=== PATIENT | female | born 1930 | race Caucasian/White ===

== ENCOUNTER 2018-03-28 20:55 | Emergency (ER) | payer OTHER ==
[~2018-03-28] VITALS: Ht 152.4 cm; Wt 68.0 kg
[~2018-03-28 20:55] MED LIST: ACET-1175 PO; ACT5 PO; ASPEC81 PO; RANI300T2 PO
[2018-03-28 21:02] VITALS: TEMP 36.6; Ht 152.4 cm; Wt 68.0 kg
[2018-03-28] MEDS ORDERED: DIPHTHERIA/TETANUS/PERTUSSIS 0.5 ML SYR/VIAL IM. ONE (21:30)
--- NOTE | 2018-03-28 21:50 | EMERGENCY ROOM VISIT NOTE ---
History Report prepared by Danny: Bettye Estrada Under the Supervision of: Dr. Salazar Peguero M.D. First contact with patient: 21:09 Chief Complaint: FALL Stated Complaint: FALL History of Present Illness The patient is an 87 year old female who presents to the Emergency Room with complaints of an episode of a fall occurring prior to arrival. The patient states that she likes to go for evening walks in the back [place] her home. She states that the road is not paved. She states that she is unsure how she fell, but notes that she remembers it all. The patient complains of head pain, right hand pain, and left knee pain. She notes that placing weight on her left leg makes the pain worse. The patient denies loss of consciousness, neck pain, back pain, changes in vision, and the use of blood thinners. Source of History: patient Onset: prior to arrival Position: head, hand (right), knee (left) Quality: other (fall) Timing: other (episode) Modifying Factors (Worsening): other (bearing weight) Associated Symptoms: No LOC, No neck pain, No back pain Note: The patient complains of head pain, right hand pain, and left knee pain. The patient denies change in vision and the use of blood thinners. Review of Systems See HPI for pertinent positives and negatives. A total of ten systems were reviewed and were otherwise negative. Past Medical & Surgical Medical Problems: (1) Dyslipidemia (2) Gastroesophageal reflux disease (3) Generalized osteoarthritis (4) Osteoporosis (5) Paroxysmal atrial fibrillation (6) s/p colonoscopy 2004 (7) s/p EGD 2006 Family History Cancer FH: HTN (hypertension) Heart disease Social History Smoking Status: Never Smoker Marital Status: Housing Status: lives with family Current/Historical Medications Scheduled Ranitidine (Zantac), 300 MG PO HS Allergies Coded Allergies: Lidocaine (Verified Allergy, Mild, 03/28/18) Naproxen (Verified Allergy, Mild, 03/28/18) Esomeprazole (Verified Allergy, Unknown, 03/28/18) Latex1 -Allergic Contact Dermititis (Verified Allergy, Unknown, 03/28/18) Physical Exam Vital Signs Date Time Temp Pulse Resp B/P (MAP) Pulse Ox O2 Delivery O2 Flow Rate FiO2 03/29/18 00:03 64 16 166/78 93 Room Air 03/28/18 23:48 69 16 184/88 94 Room Air 03/28/18 23:30 207/88 03/28/18 23:15 70 18 216/86 98 Room Air 03/28/18 21:02 36.6 85 18 190/79 100 Room Air Physical Exam Physical Exam GENERAL: She is oriented to person, place, and time. She appears well- developed and well-nourished. She does not appear distressed. HENT: Exam performed. Head: Normocephalic. Ecchymosis over her face. Right Ear: External ear normal. No mastoid tenderness. Left Ear: External ear normal. No mastoid tenderness. Mouth/Throat: The oropharynx is clear and moist. No trismus in the jaw. No dental abscesses or uvula swelling. No oropharyngeal exudate or tonsillar abscesses. Nose: swelling and ecchymosis. no septal hematoma bilateally. EYES: Conjunctivae and EOM are normal. Pupils are equal, round, and reactive to light. Right eye exhibits no discharge. Left eye exhibits no discharge. No scleral icterus. NECK: Normal range of motion. Neck supple. No JVD present. No spinous process tenderness present. No carotid bruit present. No rigidity. No tracheal deviation and normal range of motion present. No Brudzinski's sign and no Kernig 's sign noted. CV: Normal rate, regular rhythm, normal heart sounds and intact distal pulses. There is no peripheral edema. Palpable radial pulses bue. PULM/CHEST: Effort normal and breath sounds normal. No respiratory distress. No stridor. She has no wheezes. She has no rales. Chest Wall: She exhibits no tenderness. ABD: The abdomen is soft. Bowel sounds are normal. She has no distension. No mass is present. There is no tenderness. There is no rebound, no guarding, no Santos's sign and no tenderness at McBurney's point. Rovsig negative MUSC/SKEL: Normal range of motion. There is no peripheral edema, tenderness or deformity. Pelvis stable. Pain on palpation of the right snuffbox. LYMPH: No cervical adenopathy. NEURO: She is alert and oriented to person, place, and time. She has normal strength. No cranial nerve deficit or sensory deficit. Coordination and gait normal. GCS eye subscore is 4. GCS verbal subscore is 5. GCS motor subscore is 6. Cerebellar tests wnl. SKIN: Abrasions over her left lower extremity and right wrist. PSYCH: She has a normal mood and affect. Behavior is normal. Judgment and thought content normal. Medical Decision & Procedures ER Provider Diagnostic Interpretation: Radiology results as stated below per my review and radiologist interpretation: PELVIS X-RAY: The results were interpreted by me. No acute fracture or dislocation. CHEST X-RAY: The results were interpreted by me. No pneumothorax. No free air under the diaphragm. No cardiomegaly. No infiltrate. No bony fracture. Atelectasis of the left lower lobe. R WRIST X-RAY: The results were interpreted by me. Possible distal radial fracture. L KNEE X-RAY: The results were interpreted by me. No acute fracture or dislocation. HEAD WITHOUT CONTRAST (CT) CLINICAL HISTORY: 87 years-old Female with fall. Acute head injury status post fall TECHNIQUE: Multiple axial CT images of the head were obtained without contrast. A dose lowering technique was utilized adhering to the principles of ALARA. COMPARISON: CT head 05/06/2011. FINDINGS: No shift, intracranial mass, hydrocephalus, territorial ischemia or abnormal extra-axial collection. There is a 6 x 5 mm hyperdensity within the periventricular white matter of the left parietal lobe, image 11 series 2. No acute intraventricular hemorrhage. Age-related involutional changes. Moderate patchy low-attenuation about the white matter suggests chronic microvascular changes. The calvarium is intact. The paranasal sinuses, mastoid air cells, and middle ear cavities are clear. IMPRESSION: 1. 6 mm intraparenchymal hematoma of the periventricular left parietal lobe. 2. No midline shift or abnormal extra-axial collections. 3. No calvarial fracture. Findings were discussed with Dr. Peguero on 03/28/2018 at 10:05 PM The above report was generated using voice recognition software. It may contain grammatical, syntax or spelling errors. Electronically signed by: Jean Koenig M.D. 03/28/2018 10:06 PM Dictated Date/Time: 03/28/2018 9:58 PM FACIAL BONES-MXILLOFAC WITHOUT CLINICAL HISTORY: 87 years-old Female presenting with fall. Acute facial trauma status post fall COMPARISON STUDY: CT head and cervical spine of same day TECHNIQUE: High-resolution CT scan of the facial bones is performed. Images are reviewed in the axial, sagittal, and coronal planes. IV contrast was not administered for this examination. A dose lowering technique was utilized adhering to the principles of ALARA. FINDINGS: Moderate paranasal and mild left cheek soft tissue swelling. Acute fractures of the bilateral nasal bones with minimal angulation on the right. No significant displacement. Mild rightward bowing and spurring of the nasal septum. There is a suggested acute nondisplaced fracture about the left zygomatic arch, seen best on the sagittal images. Right zygomatic arch appears intact. Bilateral maxillary mooney, pterygoid plates and orbital mooney appear intact. Nasal septum and vomer also appear intact. Mastoid air cells and middle ear cavities are clear. No acute mandibular fracture. Mild mucosal thickening of the ethmoid air cells and nasal turbinates. Minimal mucosal thickening of the left sphenoid sinus. The remaining paranasal sinuses are generally clear. Degenerative changes about the cervical spine without acute fracture identified. Bilateral orbits appear unremarkable. Subcentimeter intraparenchymal hematoma about the periventricular left parietal lobe. IMPRESSION: 1. Acute bilateral nondisplaced nasal bone fractures with minimal angulation on the right. 2. Acute nondisplaced fracture of the left zygomatic arch. 3. Ill-defined subcentimeter intraparenchymal hematoma within the left parietal lobe periventricular distribution is better seen on comparison CT of the head. The above report was generated using voice recognition software. It may contain grammatical, syntax or spelling errors. Electronically signed by: Jean Koenig M.D. 03/28/2018 10:27 PM Dictated Date/Time: 03/28/2018 10:20 PM CERVICAL SPINE W/O CT DOSE: 943.32 mGy.cm CLINICAL HISTORY: 87 years-old Female with fall. Acute neck trauma status post fall COMPARISON: CT head and maxillofacial same day, CT cervical spine 05/06/2011 TECHNIQUE: Multiple axial CT images of the cervical spine were obtained without contrast. A dose lowering technique was utilized adhering to the principles of ALARA. FINDINGS: Demineralized appearance of the bones. 3 mm anterolisthesis C4 on C5 has progressed from comparison and appears degenerative with bony fusion of the left facets at this level. Nuchal ligament calcification measuring 1.9 cm posterior to the mid cervical spine. At least moderate multilevel facet arthropathy. No acute fracture or subluxation identified. Mastoid air cells and middle ear cavities are clear. Evaluation of the central canal and neuroforamina is better assessed by MRI. Moderate intervertebral disc space narrowing at C4-C5 with moderate to severe C5-C6 and C6-C7 disc space narrowing. Multilevel uncovertebral spurring with posterior disc osteophyte complex relation. No prevertebral soft tissue swelling. No definite high-grade central canal stenosis. Biapical pleural-parenchymal scarring. Spiculated and irregular solid nodule of the left upper lobe measures 7 x 5 x 7 mm favoring area of scarring, previously measuring 6 x 5 mm on study dated 05/06/2011. 4 mm solid nodule of the right lung apex, image 501 series 6 is unchanged. 3 mm solid nodule of the left lung apex as seen on image 497 series 6. This also appears unchanged. Soft tissues are unremarkable. IMPRESSION: 1. No acute cervical spine fracture or subluxation. 2. Degenerative changes as above. 3. Biapical pleural-parenchymal scarring with irregular pulmonary nodule of the left lung apex measuring up to 7 mm favoring an area of pleural-parenchymal scarring, slightly increased in size from comparison study 05/06/2011. The above report was generated using voice recognition software. It may contain grammatical, syntax or spelling errors. Electronically signed by: Jean Koenig M.D. 03/28/2018 10:19 PM Dictated Date/Time: 03/28/2018 10:11 PM Laboratory Results 03/28/18 22:20 Red Blood Count 4.04, Mean Corpuscular Volume 92.6, Mean Corpuscular Hemoglobin 30.4, Mean Corpuscular Hemoglobin Concent 32.9, Mean Platelet Volume 10.1, Neutrophils (%) (Auto) 84.1, Lymphocytes (%) (Auto) 6.9, Monocytes (%) (Auto) 8.0, Eosinophils (%) (Auto) 0.6, Basophils (%) (Auto) 0.2, Neutrophils # (Auto) 8.78, Lymphocytes # (Auto) 0.72, Monocytes # (Auto) 0.83, Eosinophils # (Auto) 0.06, Basophils # (Auto) 0.02 03/28/18 22:20 Test 03/28/18 22:20 White Blood Count 10.43 K/uL (4.8-10.8) Red Blood Count 4.04 M/uL (4.2-5.4) Hemoglobin 12.3 g/dL (12.0-16.0) Hematocrit 37.4 % (37-47) Mean Corpuscular Volume 92.6 fL (80-100) Mean Corpuscular Hemoglobin 30.4 pg (25-34) Mean Corpuscular Hemoglobin Concent 32.9 g/dl (32-36) Platelet Count 305 K/uL (130-400) Mean Platelet Volume 10.1 fL (7.4-10.4) Neutrophils (%) (Auto) 84.1 % Lymphocytes (%) (Auto) 6.9 % Monocytes (%) (Auto) 8.0 % Eosinophils (%) (Auto) 0.6 % Basophils (%) (Auto) 0.2 % Neutrophils # (Auto) 8.78 K/uL (1.4-6.5) Lymphocytes # (Auto) 0.72 K/uL (1.2-3.4) Monocytes # (Auto) 0.83 K/uL (0.11-0.59) Eosinophils # (Auto) 0.06 K/uL (0-0.5) Basophils # (Auto) 0.02 K/uL (0-0.2) RDW Standard Deviation 45.9 fL (36.4-46.3) RDW Coefficient of Variation 13.6 % (11.5-14.5) Immature Granulocyte % (Auto) 0.2 % Immature Granulocyte # (Auto) 0.02 K/uL (0.00-0.02) Prothrombin Time 10.3 SECONDS (9.0-12.0) Prothromb Time International Ratio 1.0 (0.9-1.1) Activated Partial Thromboplast Time 26.9 SECONDS (21.0-31.0) Partial Thromboplastin Ratio 1.0 Anion Gap 11.0 mmol/L (3-11) Est Creatinine Clear Calc Drug Dose 34.9 ml/min Estimated GFR () 61.2 Estimated GFR (Non- 52.8 BUN/Creatinine Ratio 16.3 (10-20) Calcium Level 8.7 mg/dl (8.5-10.1) Laboratory results reviewed by me Medications Administered Medications (Trade) Dose Ordered Sig/Niles Route Start Time Stop Time Status Last Admin Dose Admin Diphtheria/ Pertussis/Tetanus Vacc (Adacel Inj) 0.5 ml ONCE ONCE IM. 03/28/18 21:30 03/28/18 21:31 DC 03/28/18 21:30 0.5 ML Hydromorphone HCl (Dilaudid Inj) 0.5 mg NOW STAT IV 03/28/18 23:33 03/28/18 23:34 DC 03/28/18 23:42 0.5 MG Ondansetron HCl (Zofran Inj) 4 mg NOW STAT IV 03/28/18 23:33 03/28/18 23:34 DC 03/28/18 23:43 4 MG Procedure Bedside FAST exam performed with ultrasound. Views were obtained in the hepatorenal subxyphoid splenorenal and suprapubic windows. No free fluid in the abdomen. No pericardial tamponade. ED Course 2119: The patient was evaluated in room C3. A complete history and physical exam was performed. 2129: Ordered Adacel Inj 0.5 ml IM. 2213: Received a call from radiology Dr. Arnold who states that there is a 6 mm intraparenchymal hematoma in the left parietal lobe. I discussed the patient 's case with Dr. Tasha Whitaker Neurosurgeon. He states that there is no acute intervention necessary and to speak with trauma service about possible transfer. 2218: I discussed the patient's case with Dr. Ailin Whitaker emergency department. Labs ordered. Bedside FAST exam negative. The patient will be transferred and evaluated for further treatment and disposition. 2231: Labs within normal limits. X-ray shows possible distal radius fracture. We will place the patient in a Velcro splint. I reevaluated the patient and updated her and her family on her test results at this time. They verbally understood and agreed with the treatment plan. 2333: EMS here to transport the patient to [place]. Patient is hypertensive and in pain. Ordered Zofran Inj 4 mg IV, Dilaudid Inj 0.5 mg IV. Medical Decision 0: The patient was evaluated in room C3. A complete history and physical exam was performed. 0: Ordered Adacel Inj 0.5 ml IM. 4: Received a call from radiology Dr. Arnold who states that there is a 6 mm intraparenchymal hematoma in the left parietal lobe. I discussed the patient 's case with Dr. Tasha Whitaker Neurosurgeon. He states that there is no acute intervention necessary and to speak with trauma service about possible transfer. 2218: I discussed the patient's case with Dr. Ailin Whitaker emergency department. Labs ordered. Bedside FAST exam negative. The patient will be transferred and evaluated for further treatment and disposition. 2231: Labs within normal limits. X-ray shows possible distal radius fracture. We will place the patient in a Velcro splint. I reevaluated the patient and updated her and her family on her test results at this time. They verbally understood and agreed with the treatment plan. 2333: EMS here to transport the patient to [place]. Patient is hypertensive and in pain. Ordered Zofran Inj 4 mg IV, Dilaudid Inj 0.5 mg IV. Medication Reconcilliation Current Medication List: was personally reviewed by me Blood Pressure Screening Patient's blood pressure: Elevated blood pressure Will be further monitored by the Brendan Whitaker. Consults Time Called: 2202 Consulting Physician: Dr. Tasha Whitaker Neurosurgeon Returned Call: 2213 I discussed the patient's case with Dr. Tasha Whitaker Neurosurgeon. He states that there is no acute intervention necessary. Additional Consults: Time Called: 2213 Consulted Physician: Dr. Ailin Whitaker Trauma Returned Call: 2217 Additional Comments: I discussed the patient's case with Dr. Ailin Whitaker Trauma. The patient will be transferred and evaluated for further treatment and disposition. Impression Primary Impression: Intracerebral hemorrhage Additional Impressions: Nasal fracture Zygomatic arch fracture Fall Critical Care I have personally spent greater than 81 minutes of critical care time in the direct management of this patient. This includes bedside care, interpretation of diagnostic studies, and testing, discussion with consultants, patient, and family members, and other required patient management activities. This 81 minutes is in excess of all separately billable procedures. Scribe Attestation The scribe's documentation has been prepared under my direction and personally reviewed by me in its entirety. I confirm that the note above accurately reflects all work, treatment, procedures, and medical decision making performed by me. The chart was completed utilizing [employer] Speech voice recognition software. Grammatical errors, random word insertions, pronoun errors, and incomplete sentences are an occasional consequence of this system due to software limitations, ambient noise, and hardware issues. Any formal questions or concerns about the content, text, or information contained within the body of this dictation should be directly addressed to the physician for clarification. Departure Information Dispostion Transfer Acute Care Facility Referrals Sergei Matias M.D. (PCP) Patient Instructions My [facility] Problem Qualifiers Primary Impression: Intracerebral hemorrhage Intracerebral hemorrhage etiology: traumatic Encounter type: initial encounter Laterality: unspecified laterality Loss of consciousness presence/ duration: without LOC Qualified Codes: S06.360A - Traumatic hemorrhage of cerebrum, unspecified, without loss of consciousness, initial encounter Additional Impressions: Nasal fracture Encounter type: initial encounter Fracture type: closed Qualified Codes: S02.2XXA - Fracture of nasal bones, initial encounter for closed fracture Zygomatic arch fracture Encounter type: initial encounter Fracture type: closed Laterality: unspecified laterality Qualified Codes: S02.402A - Zygomatic fracture, unspecified side, initial encounter for closed fracture Fall Encounter type: initial encounter Qualified Codes: W19.XXXA - Unspecified fall, initial encounter
--- NOTE | 2018-03-28 22:08 | DIAGNOSTIC IMAGING REPORT ---
HEAD WITHOUT CONTRAST (CT) CLINICAL HISTORY: 87 years-old Female with fall. Acute head injury status post fall TECHNIQUE: Multiple axial CT images of the head were obtained without contrast. A dose lowering technique was utilized adhering to the principles of ALARA. COMPARISON: CT head 05/06/2011. FINDINGS: No shift, intracranial mass, hydrocephalus, territorial ischemia or abnormal extra-axial collection. There is a 6 x 5 mm hyperdensity within the periventricular white matter of the left parietal lobe, image 11 series 2. No acute intraventricular hemorrhage. Age-related involutional changes. Moderate patchy low-attenuation about the white matter suggests chronic microvascular changes. The calvarium is intact. The paranasal sinuses, mastoid air cells, and middle ear cavities are clear. IMPRESSION: 1. 6 mm intraparenchymal hematoma of the periventricular left parietal lobe. 2. No midline shift or abnormal extra-axial collections. 3. No calvarial fracture. Findings were discussed with Dr. Peguero on 03/28/2018 at 10:05 PM The above report was generated using voice recognition software. It may contain grammatical, syntax or spelling errors. Electronically signed by: Jean Koenig M.D. 03/28/2018 10:06 PM Dictated Date/Time: 03/28/2018 9:58 PM
--- NOTE | 2018-03-28 22:20 | DIAGNOSTIC IMAGING REPORT ---
CERVICAL SPINE W/O CT DOSE: 943.32 mGy.cm CLINICAL HISTORY: 87 years-old Female with fall. Acute neck trauma status post fall COMPARISON: CT head and maxillofacial same day, CT cervical spine 05/06/2011 TECHNIQUE: Multiple axial CT images of the cervical spine were obtained without contrast. A dose lowering technique was utilized adhering to the principles of ALARA. FINDINGS: Demineralized appearance of the bones. 3 mm anterolisthesis C4 on C5 has progressed from comparison and appears degenerative with bony fusion of the left facets at this level. Nuchal ligament calcification measuring 1.9 cm posterior to the mid cervical spine. At least moderate multilevel facet arthropathy. No acute fracture or subluxation identified. Mastoid air cells and middle ear cavities are clear. Evaluation of the central canal and neuroforamina is better assessed by MRI. Moderate intervertebral disc space narrowing at C4-C5 with moderate to severe C5-C6 and C6-C7 disc space narrowing. Multilevel uncovertebral spurring with posterior disc osteophyte complex relation. No prevertebral soft tissue swelling. No definite high-grade central canal stenosis. Biapical pleural-parenchymal scarring. Spiculated and irregular solid nodule of the left upper lobe measures 7 x 5 x 7 mm favoring area of scarring, previously measuring 6 x 5 mm on study dated 05/06/2011. 4 mm solid nodule of the right lung apex, image 501 series 6 is unchanged. 3 mm solid nodule of the left lung apex as seen on image 497 series 6. This also appears unchanged. Soft tissues are unremarkable. IMPRESSION: 1. No acute cervical spine fracture or subluxation. 2. Degenerative changes as above. 3. Biapical pleural-parenchymal scarring with irregular pulmonary nodule of the left lung apex measuring up to 7 mm favoring an area of pleural-parenchymal scarring, slightly increased in size from comparison study 05/06/2011. The above report was generated using voice recognition software. It may contain grammatical, syntax or spelling errors. Electronically signed by: Jean Koenig M.D. 03/28/2018 10:19 PM Dictated Date/Time: 03/28/2018 10:11 PM
--- NOTE | 2018-03-28 22:28 | DIAGNOSTIC IMAGING REPORT ---
FACIAL BONES-MXILLOFAC WITHOUT CLINICAL HISTORY: 87 years-old Female presenting with fall. Acute facial trauma status post fall COMPARISON STUDY: CT head and cervical spine of same day TECHNIQUE: High-resolution CT scan of the facial bones is performed. Images are reviewed in the axial, sagittal, and coronal planes. IV contrast was not administered for this examination. A dose lowering technique was utilized adhering to the principles of ALARA. FINDINGS: Moderate paranasal and mild left cheek soft tissue swelling. Acute fractures of the bilateral nasal bones with minimal angulation on the right. No significant displacement. Mild rightward bowing and spurring of the nasal septum. There is a suggested acute nondisplaced fracture about the left zygomatic arch, seen best on the sagittal images. Right zygomatic arch appears intact. Bilateral maxillary mooney, pterygoid plates and orbital mooney appear intact. Nasal septum and vomer also appear intact. Mastoid air cells and middle ear cavities are clear. No acute mandibular fracture. Mild mucosal thickening of the ethmoid air cells and nasal turbinates. Minimal mucosal thickening of the left sphenoid sinus. The remaining paranasal sinuses are generally clear. Degenerative changes about the cervical spine without acute fracture identified. Bilateral orbits appear unremarkable. Subcentimeter intraparenchymal hematoma about the periventricular left parietal lobe. IMPRESSION: 1. Acute bilateral nondisplaced nasal bone fractures with minimal angulation on the right. 2. Acute nondisplaced fracture of the left zygomatic arch. 3. Ill-defined subcentimeter intraparenchymal hematoma within the left parietal lobe periventricular distribution is better seen on comparison CT of the head. The above report was generated using voice recognition software. It may contain grammatical, syntax or spelling errors. Electronically signed by: Jean Koenig M.D. 03/28/2018 10:27 PM Dictated Date/Time: 03/28/2018 10:20 PM
[2018-03-28 22:36] LABS: BASO % 0.2 %; BASO ABS # 0.02 K/uL (0-0.2); EOS % 0.6 %; EOS ABS # 0.06 K/uL (0-0.5); HEMATOCRIT 37.4 % (37-47); HEMOGLOBIN 12.3 g/dL (12.0-16.0); IG# 0.02 K/uL (0.00-0.02); LYMPH % 6.9 %; LYMPH ABS # 0.72 K/uL (1.2-3.4); MEAN CELL VOLUME 92.6 fL (80-100); MEAN CORPUSCULAR HEMOGLOBIN 30.4 pg (25-34); MEAN CORPUSCULAR HGB CONC 32.9 g/dl (32-36); MEAN PLATELET VOLUME 10.1 fL (7.4-10.4); MONO ABS # 0.83 K/uL (0.11-0.59); NEUT % 84.1 %; NEUT ABS # 8.78 K/uL (1.4-6.5); PLATELET COUNT 305 K/uL (130-400); RED CELL DISTRIBUTION WIDTH CV 13.6 % (11.5-14.5); RED CELL DISTRIBUTION WIDTH SD 45.9 fL (36.4-46.3); WHITE BLOOD COUNT 10.43 K/uL (4.8-10.8)
[2018-03-28 22:49] LABS: PTT PATIENT 26.9 SECONDS (21.0-31.0)
[2018-03-28 22:52] LABS: CALCIUM 8.7 mg/dl (8.5-10.1); CREATININE 0.96 mg/dl (0.60-1.20); POTASSIUM 3.7 mmol/L (3.5-5.1)
--- NOTE | 2018-03-28 23:02 | DIAGNOSTIC IMAGING REPORT ---
L KNEE 1 OR 2 VIEWS ROUTINE HISTORY: 87 years-old Female fall acute posttraumatic left knee pain COMPARISON: None available TECHNIQUE: 2 views of the left knee FINDINGS: Mild bone demineralization. 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 6 mm subchondral lucency about the mid to superior patella suggests subchondral cyst or osteochondral defect. Small joint effusion with mild soft tissue swelling about the knee. No acute fracture or dislocation. IMPRESSION: 1. No acute fracture or dislocation. 2. Small joint effusion with mild soft tissue swelling. 3. Degenerative changes as above. The above report was generated using voice recognition software. It may contain grammatical, syntax or spelling errors. Electronically signed by: Jean Koenig M.D. 03/28/2018 11:00 PM Dictated Date/Time: 03/28/2018 10:59 PM
--- NOTE | 2018-03-28 23:03 | DIAGNOSTIC IMAGING REPORT ---
R WRIST MIN 3 VIEWS ROUTINE HISTORY: 87 years-old Female fall acute right wrist pain status post fall COMPARISON: None available TECHNIQUE: 4 views of the right wrist FINDINGS: Demineralized appearance of the bones. Moderate radiocarpal and triscaphe with severe first carpometacarpal osteoarthritis. Subcortical cystic changes about the carpal bones. Distal radius and ulna appear intact. No acute fracture or dislocation. Degenerative changes about the metacarpophalangeal joints. IMPRESSION: No acute fracture or dislocation. The above report was generated using voice recognition software. It may contain grammatical, syntax or spelling errors. Electronically signed by: Jean Koenig M.D. 03/28/2018 11:02 PM Dictated Date/Time: 03/28/2018 11:00 PM
--- NOTE | 2018-03-28 23:04 | DIAGNOSTIC IMAGING REPORT ---
PELVIS 1 OR 2 VIEW ROUTINE HISTORY: 87 years-old Female fall acute pelvic pain status post fall COMPARISON: None available TECHNIQUE: AP view of the pelvis FINDINGS: Mineralized appearance of the bones. 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 No acute fracture or dislocation. Probable phleboliths of the right hemipelvis. IMPRESSION: No acute fracture or dislocation. The above report was generated using voice recognition software. It may contain grammatical, syntax or spelling errors. Electronically signed by: Jean Koenig M.D. 03/28/2018 11:03 PM Dictated Date/Time: 03/28/2018 11:02 PM
--- NOTE | 2018-03-28 23:07 | DIAGNOSTIC IMAGING REPORT ---
CHEST ONE VIEW PORTABLE HISTORY: 87 years-old Female fall acute chest trauma status post fall COMPARISON: Chest radiograph 02/17/2012 TECHNIQUE: Portable AP view of the chest FINDINGS: Cardiac silhouette is mildly enlarged. Calcification of the aorta. No pneumothorax, pleural effusion, focal airspace consolidation or overt pulmonary edema. Demineralized appearance of the bones with degenerative changes of the shoulders and spine. No acute displaced rib fracture identified. IMPRESSION: No acute process. The above report was generated using voice recognition software. It may contain grammatical, syntax or spelling errors. Electronically signed by: Jean Koenig M.D. 03/28/2018 11:06 PM Dictated Date/Time: 03/28/2018 11:03 PM
[2018-03-28] MEDS ORDERED: ONDANSETRON INJ 2 MG/ML 2 ML VIAL IV STA (23:33)
[2018-03-28] MEDS ORDERED: HYDROmorphone INJ 0.5 MG/0.5 ML SYR IV STA (23:33)
[2018-03-29 00:03] VITALS: BP 166/78; PULSE 64; O2SAT 93
== END 2018-03-29 | disposition short-term general hospital (02) ==
LOC: C.EDB 20:56 → C.EDC 03-29
DX: S06.350A Traumatic hemorrhage of left cerebrum without loss of consciousness, initial encounter (principal); S02.2XXA Fracture of nasal bones, initial encounter for closed fracture; S02.402A Zygomatic fracture, unspecified side, initial encounter for closed fracture; S60.811A Abrasion of right wrist, initial encounter; S80.812A Abrasion, left lower leg, initial encounter; Z23 Encounter for immunization; W19.XXXA Unspecified fall, initial encounter; Y93.01 Activity, walking, marching and hiking; Y92.89 Other specified places as the place of occurrence of the external cause; Y99.8 Other external cause status; R03.0 Elevated blood-pressure reading, without diagnosis of hypertension; K21.9 Gastro-esophageal reflux disease without esophagitis; Z88.8 Allergy status to other drugs, medicaments and biological substances; Z88.6 Allergy status to analgesic agent; Z91.040 Latex allergy status